=== PATIENT | female | born 1975 | race Two or more races ===

== ENCOUNTER 2018-10-05 09:04 | Outpatient (CLI) | payer OTHER | END 2018-10-05 09:05 | disposition EMS.NT | LOC: EMS 09:04 | PROVIDERS: ATTEND Surgery | DX: S89.92XA Unspecified injury of left lower leg, initial encounter (principal); W54.8XXA Other contact with dog, initial encounter ==

== ENCOUNTER 2018-10-05 09:22 | Emergency (ER) | payer OTHER ==
[2018-10-05 09:38] VITALS: BP 178/93
[2018-10-05] MEDS ORDERED: TETANUS/DIPHTHERIA/PERTUSSIS 0.5 ML SYRINGE IM ONE (10:10)
--- NOTE | 2018-10-05 10:12 | ED Physician Documentation ---
PD HPI ANIMAL BITE - Stated complaint Stated Complaint: DOG BITES - Chief complaint Chief Complaint: Wound - History obtained from History obtained from: Patient - History of Present Illness Location of injury(ies): LLE Details of the event: Dog, Bite, Pet animal, Immunization unknown, Unprovoked, Animal can be observed, Animal control notified Timing - onset: Today Timing - duration: Minutes Timing - details: Abrupt onset, Still present Improved by: Rest, Immobilization Worsened by: Moving, Palpating Associated symptoms: No: Weakness, Numbness, Tingling, Swelling Contributing factors: No: Immunocompromised Similar symptoms before: Has not had sx before Recently seen: Not recently seen - Additional information Additional information: 43-year-old female had taken her children to the school bus and was walking back to her home past the house that has 3 dogs behind a fence. The dogs were not behind the fence today and the attacked the patient biting at her left lower extremity. She was able to throw her coffee cup at 1 and the test bore helper came out and corralled the dogs. Police were at the scene and animal control has been notified. The dogs can be observed for 10 days. Review of Systems Constitutional: denies: Fever Respiratory: denies: Cough GI: denies: Vomiting Skin: reports: Bite / sting Musculoskeletal: reports: Extremity pain. denies: Neck pain, Back pain Neurologic: denies: Generalized weakness, Focal weakness PD PAST MEDICAL HISTORY - Allergies Allergies/Adverse Reactions: Allergies Allergy/AdvReac Type Severity Reaction Status Date / Time metronidazole [From Flagyl] Allergy Unknown Verified 10/05/18 09:38 PD ED PE NORMAL - Vitals Vital signs reviewed: Yes (hypertensive ) - General General: Alert and oriented X 3, No acute distress, Well developed/nourished - HEENT HEENT: Atraumatic, PERRL, EOMI - Neck Neck: Supple, no meningeal sign - Respiratory Respiratory: No respiratory distress - Derm Derm: Normal color, Warm and dry, No rash - Extremities Extremities: No deformity, No edema, Other (There are small (2mm) round puncture torres to the left anterior thigh and calf. ) - Neuro Neuro: Alert and oriented X 3, spice miller 2-12 intact, No motor deficit, No sensory deficit, Normal speech Eye Opening: Spontaneous Motor: Obeys Commands Verbal: Oriented GCS Score: 15 - Psych Psych: Normal mood, Normal affect Results - Vitals Vitals: Vital Signs - 24 hr 10/05/18 09:35 Temperature 36.4 C L Heart Rate 86 Respiratory 18 Rate Blood Pressure 178/93 H O2 Saturation 95 Oxygen O2 Source Room air PD MEDICAL DECISION MAKING - ED course Complexity details: considered differential, d/w patient ED course: 43-year-old female with bites to the left lower extremity that appear superficial and I do not believe antibiotic prophylaxis is warranted at this time. Wounds are cleansed she is given a tetanus booster. Departure - Departure Disposition: 01 Home, Self Care Clinical Impression: Dog bite of left lower leg Qualifiers: Encounter type: initial encounter Qualified Code(s): S81.852A - Open bite, left lower leg, initial encounter; W54.0XXA - Bitten by dog, initial encounter Condition: Stable Instructions: Bites Scratches Animal Follow-Up: ELIZABETH MADISON [Primary Care Provider] -
== END 2018-10-05 10:18 | disposition home or self-care (01) ==
LOC: ED 09:22
DX: S71.152A Open bite, left thigh, initial encounter (principal); S81.852A Open bite, left lower leg, initial encounter; W54.0XXA Bitten by dog, initial encounter; Y93.01 Activity, walking, marching and hiking; Z23 Encounter for immunization
CPT/HCPCS: 90471; 99282

== ENCOUNTER 2019-03-30 10:03 | Emergency (ER) | payer OTHER ==
--- NOTE | 2019-03-30 10:39 | ED Physician Documentation ---
PD HPI FEMALE - Stated complaint Stated Complaint: FEM - Chief complaint Chief Complaint: Abd Pain - History obtained from History obtained from: Patient - History of Present Illness Timing - onset: How many days ago (4) Timing - duration: Days (4) Timing - details: Abrupt onset (had merina IUD placed on Monday, and since has had intermittent very sharp pains in cervix area, feeling like "a pin in poking me". She is wondering if the string is jabbing. She reached in with finger and could feel just the point end of the string at the end of the cervix and it was very tender there. Unable to get appt back with provider until next week.), Intermittant Associated symptoms: Vaginal discharge (mild, but she felt expected from the IUD (had one placed prior to that)). No: Fever, Vaginal bleeding Contributing factors: IUD (placed 4 days ago when the pain began.). No: Similar symptoms before: Has not had sx before Recently seen: Clinic Review of Systems Constitutional: denies: Fever, Chills, Myalgias Nose: denies: Rhinorrhea / runny nose, Congestion Throat: denies: Sore throat Respiratory: denies: Cough : denies: Dysuria, Frequency, Vaginal bleeding PD PAST MEDICAL HISTORY - Past Medical History Past Medical History: No Endocrine/Autoimmune: Type 2 diabetes - Past Surgical History General: Cholecystectomy - Present Medications Home Medications: Ambulatory Orders Medication Instructions Recorded Confirmed Hydrocodone/Acetaminophen [[place]our 1 each PO Q6H PRN #10 tablet 03/30/19 5-325 Tablet] - Allergies Allergies/Adverse Reactions: Allergies Allergy/AdvReac Type Severity Reaction Status Date / Time metronidazole [From Flagyl] Allergy Unknown Verified 10/05/18 09:38 - Social History Does the pt smoke?: No Smoking Status: Former smoker Does the pt drink ETOH?: Yes Does the pt have substance abuse?: No Substance Use and Type: Marijuana PD ED PE NORMAL - Vitals Vital signs reviewed: Yes - General General: Alert and oriented X 3, No acute distress, Well developed/nourished - Abdomen Abdomen: Soft, Non tender - Female Female : Guillotine Trimmer present, Other (vault normal. The cervical os had a red/irritated spot, not quite bleeding, at the 12 o'clock position, with the very end of the IUD string right at that spot. Mild mucous discharge from os. No bleeding. ) - Derm Derm: Normal color, Warm and dry - Neuro Neuro: Alert and oriented X 3, No motor deficit, Normal speech Results - Vitals Vitals: Vital Signs - 24 hr 03/30/19 03/30/19 10:08 13:43 Temperature 36.9 C 37.2 C Heart Rate 64 60 Respiratory 16 18 Rate Blood Pressure 170/74 H 150/84 H O2 Saturation 100 100 Oxygen O2 Source Room air - Rads (name of study) pelvic U/S Radiology: Prelim report reviewed (IUD in correct position.), See rad report PD MEDICAL DECISION MAKING - ED course Complexity details: considered differential (will do pelvic to look for cervical irritation as she feels it is, and get U/S to ensure proper placement. ), d/w patient ED course: Pelvic exam showed the string end to be right at the cervical os, with local redness/irritation, not quite bleeding, at that point on the cervical os. I was able to grab the end of the string with forces and straighten it out to length so not touching on the cervical os. Then got U/S to ensure the IUD was still in the proper posibion and not pulled too much. It was in good position, per U/S. Departure - Departure Disposition: 01 Home, Self Care Clinical Impression: IUD complication Qualifiers: Device complication type: mechanical Mechanical complication type: other Encounter type: initial encounter Qualified Code(s): T83.39XA - Other mechanical complication of intrauterine contraceptive device, initial encounter Cervical abrasion Qualifiers: Encounter type: initial encounter Qualified Code(s): S37.69XA - Other injury of uterus, initial encounter Condition: Stable Record reviewed to determine appropriate education?: Yes Prescriptions: Hydrocodone/Acetaminophen [[place]our 5-325 Tablet] 1 each PO Q6H PRN #10 tablet PRN Reason: Pain Comments: The end of the cervix was looking irritated where the string and was touching. The string is now out away from there and hopefully will not irritated anymore. It should be able to heal up over the next couple of days. The ultrasound shows the IUD to still be in the proper position so it would seem that the string had just curled up and was not necessarily too short. Recheck if not improved well over the next couple of days with less of the pain as I suppose it could curl up again in touch on the same spot. He will still be some irritation of the cervix but hopefully not as sharp as it has been. Use some anti-inflammatories such as ibuprofen or naproxen twice daily and add Tylenol or hydrocodone if needed for pain today and tomorrow. I would anticipate a tapering down and not needing more after that. Discharge Date/Time: 03/30/19 13:44
[2019-03-30] MEDS ORDERED: IBUPROFEN 600 MG TABLET PO STA (10:49)
[2019-03-30] MEDS ORDERED: ACETAMINOPHEN 325 MG TABLET PO STA (10:49)
[2019-03-30 13:44] VITALS: BP 150/84
--- NOTE | 2019-03-30 13:46 | Ultrasound Report ---
Reason: pelvic pain; s/p IUD placement last week Procedure Date: 03/30/2019 Accession Number: [id number] / [id number] Procedure: US - Pelvic w/Doppler Limited CPT Code: FULL RESULT: EXAM: PELVIC ULTRASOUND EXAM DATE: 03/30/2019 01:05 PM. CLINICAL HISTORY: Pelvic pain; s/p IUD placement last week. COMPARISON: None. TECHNIQUE: Realtime transabdominal pelvic scan performed to identify the uterus and adnexa and as an overview of other pelvic structures, followed by transvaginal scan to provide greater detail of the uterus and adnexa, with static image documentation. FINDINGS: Uterus: 9.3 x 5.1 x 6.5 cm, volume 161.3 cc. Anteverted position. Normal overall size and echotexture. Masses: Multiple fibroids seen. Largest is in the right posterior intramural location measuring 2.1 x 2.2 x 2.1 cm. Other smaller two posterior intramural measure 0.7 x 0.7 x 0.8 cm and 1 x 1 x 1.3 cm. Endometrium: 5 mm. Normal. Well-positioned IUD. Cervix: Nabothi and cysts noted. Right Ovary: 2.3 x 2.5 x 2.6 cm, volume 7.9 cc. Normal echotexture and blood flow. There are 2 subcentimeter heterogeneous/hyperechoic cysts and right ovary, most consistent with small physiological or hemorrhagic cysts. Both cysts measure less than 1 cm. Left Ovary: 3 x 1.9 x 3.8 cm, volume 11.3 cc. Normal echotexture and blood flow. There is a simple cyst in left ovary measuring 2.1 x 1.3 x 1.8 cm. Free Fluid: None. Other: None. IMPRESSION: Three Posterior intramural fibroids, as described above. Well-positioned intrauterine device. Heterogeneous/hyperechoic cysts in right ovary, less than 1 cm. Likely physiological versus hemorrhagic. A simple cyst in left ovary. No other significant abnormality. [facility]
== END 2019-03-30 13:44 | disposition home or self-care (01) ==
LOC: ED 10:03
DX: T83.39XA Other mechanical complication of intrauterine contraceptive device, initial encounter (principal); S37.69XA Other injury of uterus, initial encounter; Y84.8 Other medical procedures as the cause of abnormal reaction of the patient, or of later complication, without mention of misadventure at the time of the procedure; E11.9 Type 2 diabetes mellitus without complications; Z87.891 Personal history of nicotine dependence
CPT/HCPCS: 76856; 93976; 99284; A9270